=== PATIENT | female | born 1990 | race Caucasian/White ===

== ENCOUNTER 2023-05-05 19:14 | Inpatient (IN) | payer OTHER ==
[2023-05-05] MEDS ORDERED: METHYLERGONOVINE 0.2 MG/ML 1 ML AMP IM PRN (19:37)
[2023-05-05] MEDS ORDERED: TERBUTALINE 1 MG/ML VIAL SQ PRN (19:37)
[2023-05-05] MEDS ORDERED: TRANEXAMIC 1,000 MG/100ML-NACL 1,000 MG in EMPTY BAG 1 BAG IV PRN (19:37)
[2023-05-05] MEDS ORDERED: miSOPROStoL 200 MCG TAB PO PRN (19:37)
[2023-05-05] MEDS ORDERED: LIDOCAINE 0.5% (PF) 5 MG/ML (50 ML SDV) SQ PRN (19:37)
[2023-05-05] MEDS ORDERED: OXYTOCIN 10 UNIT/ML 1 ML VIAL IM PRN (19:37)
[2023-05-05] MEDS ORDERED: CARBOPROST TROMETHAMINE 250 MCG/ML 1 ML AMP IM PRN (19:37)
[2023-05-05] MEDS: LACTATED RINGERS 1,000 ML IV SCH ×2 (19:45→20:03)
[2023-05-05 20:06] LABS: Basophils % (A) 0 %; Eosinophils # (A) 0.2 k/uL (0-0.7); Eosinophils % (A) 2 %; HGB 12.3 gm/dL (11.4-16.0); Lymphocytes # (A) 3.4 k/uL (1.0-4.8); Lymphocytes % (A) 25 %; MCH 32.9 pg (25.0-35.0); MCHC 34.1 g/dL (31.0-37.0); MCV 96.3 fL (80.0-100.0); Mean Platelet Volume 8.9; Monocytes % (A) 7 %; Neutrophils # (A) 8.4 k/uL (1.3-7.7); Neutrophils % (A) 63 %; Platelet Count 236 k/uL (150-450); RBC 3.74 m/uL (3.80-5.40); RDW 13.4 % (11.5-15.5); WBC 13.4 k/uL (3.8-10.6)
[2023-05-05] MEDS ORDERED: SODIUM CHLORIDE 0.9% 250 ML BAG ONE (20:25)
[2023-05-05] MEDS ORDERED: ROPIVACAINE 5 MG/ML 30 ML VIAL ONE (20:25)
[2023-05-05] MEDS ORDERED: fentaNYL (PF) 50 MCG/ML 5 ML AMP ONE (20:25)
[2023-05-06] MEDS ORDERED: OXYTOCIN 10 UNIT/ML 1 ML VIAL IM PRN (01:39)
[2023-05-06] MEDS ORDERED: CITRIC ACID-SODIUM CITRATE 15 ML CUP PO ONE (01:39)
[2023-05-06] MEDS ORDERED: OXYTOCIN 30 UNITS/500 ML NS 30 UNIT in SALINE 1 500ML.BAG IV SCH (01:45)
[2023-05-06] MEDS ORDERED: fentaNYL (PF) 50 MCG/ML 2 ML AMP ONE (02:00)
[2023-05-06] MEDS ORDERED: ONDANSETRON 4 MG/2 ML VIAL ONE (02:00)
[2023-05-06] MEDS ORDERED: NALBUPHINE 10 MG/ML (10 ML MDV) ONE (02:00)
[2023-05-06] MEDS ORDERED: KETOROLAC 15 MG/ML 1 ML VIAL ONE (02:00)
[2023-05-06] MEDS ORDERED: MORPHINE SULFATE (PF) 0.3 MG/0.3 ML SYR ONE (02:00)
[2023-05-06] MEDS ORDERED: LIDOCAINE 2% (PF) 20 MG/ML 5 ML VIAL ONE (02:00)
--- NOTE | 2023-05-06 02:44 | P.HPOB ---
History of Present Illness H&P Date: 05/06/23 Chief Complaint: labor 32 year old presents at 39 weeks 4 days in active labor. Her cervix was 4/100/-1. She was jacob every few minutes and heart tones category I. Review of Systems All systems: negative Constitutional: Denies chills, Denies fever Eyes: denies blurred vision, denies pain Ears, nose, mouth and throat: Denies headache, Denies sore throat Cardiovascular: Denies chest pain, Denies shortness of breath Respiratory: Denies cough Gastrointestinal: Denies abdominal pain, Denies diarrhea, Denies nausea, Denies vomiting Genitourinary: Denies dysuria, Denies hematuria Musculoskeletal: Denies myalgias Integumentary: Denies pruritus, Denies rash Neurological: Denies numbness, Denies weakness Psychiatric: Denies anxiety, Denies depression Endocrine: Denies fatigue, Denies weight change Past Medical History Past Medical History: No Reported History History of Any Multi-Drug Resistant Organisms: None Reported Past Surgical History: No Surgical Hx Reported Past Anesthesia/Blood Transfusion Reactions: No Reported Reaction Past Psychological History: No Psychological Hx Reported Smoking Status: Never smoker Past Drug Use History: None Reported Medications and Allergies Home Medications Medication Instructions Recorded Confirmed Type Vit No.179/Iron/Folic 1 tab PO DAILY 05/05/23 05/05/23 History [ Tablet] Allergies Allergy/AdvReac Type Severity Reaction Status Date / Time No Known Allergies Allergy Verified 05/05/23 19:35 Exam Osteopathic Statement: *. No significant issues noted on an osteopathic structural exam other than those noted in the History and Physical/Consult. Vital Signs Temp Pulse Resp BP Pulse Ox 05/05/23 19:35 97.9 F 81 16 142/93 100 05/05/23 19:30 97.9 F 81 16 142/93 100 Intake and Output 05/05/23 05/05/23 05/06/23 14:59 22:59 06:59 Other: Weight 87.997 kg HEart: RRR Lungs: CTAB Abdomen: soft, nontender Extremeties: neg jo's Results Result Diagrams: 05/05/23 19:30 Abnormal Lab Results - Last 24 Hours (Table) 05/05/23 Range/Units 19:30 WBC 13.4 H (3.8-10.6) k/uL RBC 3.74 L (3.80-5.40) m/uL Neutrophils # 8.4 H (1.3-7.7) k/uL Assessment and Plan (1) Normal labor Current Visit: Yes Status: Acute Code(s): O80 - ENCOUNTER FOR FULL-TERM UNCOMPLICATED DELIVERY; Z37.9 - OUTCOME OF DELIVERY, UNSPECIFIED SNOMED Code( s): 17473908 (2) 39 weeks gestation of Current Visit: Yes Status: Acute Code(s): Z3A.39 - 39 WEEKS GESTATION OF SNOMED Code(s): 36495534 Plan: 1. admit to [facility] 2. expectant management 3. anticipate normal vaginal delivery
[2023-05-06] MEDS ORDERED: ONDANSETRON 4 MG/2 ML VIAL IVP PRN (02:48)
[2023-05-06] MEDS ORDERED: LANOLIN CREAM 5 GM TUBE TOPICAL PRN (02:48)
[2023-05-06] MEDS ORDERED: ZOLPIDEM 5 MG TAB PO PRN (02:48)
[2023-05-06] MEDS ORDERED: diphenhydrAMINE 50 MG CAP PO PRN (02:48)
[2023-05-06] MEDS ORDERED: METOCLOPRAMIDE 5 MG/ML 2 ML VIAL IVP PRN (02:48)
[2023-05-06] MEDS ORDERED: diphenhydrAMINE 25 MG CAP PO PRN (02:48)
[2023-05-06] MEDS ORDERED: NALOXONE 0.4 MG/ML 1 ML VIAL IV PRN (02:48)
[2023-05-06] MEDS ORDERED: diphenhydrAMINE 50 MG/ML 1 ML VIAL IVP PRN ×2 (02:48)
--- NOTE | 2023-05-06 02:48 | P.OP ---
Date of Procedure: 05/06/23 Preoperative Diagnosis: 1. at 39 weeks 4 days 2. labor 3. maternal fever 4. arrest of descent Postoperative Diagnosis: same Procedure(s) Performed: primary low transverse Anesthesia: epidural Surgeon: Lyudmila Romero Cardiac Cath Lab Manager #1: Emily Callahan Estimated Blood Loss (ml): 700 IV fluids (ml): 600 Urine output (ml): 150 Pathology: other (placenta) Condition: stable Disposition: floor Indications for Procedure: 30-year-old presented at 39 weeks and 4 days and labor. Her cervix was 4 centers dilated, her percent effaced, -1 station. She is jacob every few minutes. heart tones 135 with moderate variability and reactive, category 1. Spontaneous rupture membranes occurred at 1800. Meconium fluid was seen. The patient an epidural and she was uncomfortable and did progress to complete. She pushed for an hour with no descent of baby. There was At and patient was pushing directly but no descent was occurring. She then got a fever of 101 and heart tones were tachycardic with variables after contractions. Patient sent home was performed and discussion had with patient, and nursing staff at bedside. The concern for expected delivery was discussed the patient agreed to the plan of section. Operative Findings: Viable male, Apgars pending, weight 8 lbs. 11 oz. Normal uterus, tubes, ovaries. Description of Procedure: Patient was taken to the operating room where spinal anesthesia was found be adequate. She was prepped and draped in normal sterile fashion in dorsal supine position with a leftward tilt. Pfannenstiel skin incision was made the scalpel and carried through to the underlying layer of fascia with the scalpel. Fascia was incised in midline and carried bilaterally with the Mera scissors. The superior aspect of the fascial incision was grasped with [place] clamps elevated and the underlying rectus muscles dissected off with the Mera's. Attention was then turned to inferior aspect of same incision which in a similar fashion was grasped tented up and the underlying rectus muscles dissected off with the Mera's. The rectus muscles were the midline and the peritoneum was identified tented up and entered sharply with the scalpel. The incision was extended superiorly and inferiorly with good visualization of the bladder. The bladder blade was inserted and the vesicouterine peritoneum was incised the [place] then carried bilaterally and bladder flap created digitally. A low transverse incision was then made on the uterus with the scalpel. This was carried bilaterally and digital manner. Infant's head delivered atraumatically, nose and mouth bulb suctioned, cord clamped and cut, handed off to waiting nurses. Apgars pending, weight 8 lbs. 11 oz. Placenta delivered manually, intact with three-vessel cord. The uterus is exteriorized and cleared of all clots and debris. The uterine incision was closed with 0 Vicryl in a ru nning locked fashion. Second layer of the same sutures used in imbricating fashion to obtain excellent hemostasis. Bladder flap was then reapproximated using 2-0 Vicryl in a running fashion. Both ovaries and tubes appeared normal. The uterus was placed back into the abdomen. The peritoneum was reapproximated using 2-0 Vicryl in a running fashion. The muscles were reapproximated using 2- 0 Vicryl in interrupted fashion. The fascia was reapproximated using 0 Vicryl in a running fashion. The subcutaneous tissues closed with 3-0 Vicryl running fashion. The skin was closed ghulam. Patient tolerated the procedure well, sponge and instrument counts were correct times 2 and she was taken to the recovery room in stable condition.
[2023-05-06] MEDS: ACETAMINOPHEN TAB 500 MG TAB PO SCH ×4 (04:05→23:59)
[2023-05-06] MEDS: LACTATED RINGERS 1,000 ML IV SCH ×3 (04:06→21:02)
[2023-05-06] MEDS: IBUPROFEN 600 MG TAB PO SCH ×2 (07:45→17:12)
[2023-05-06] MEDS: KETOROLAC 15 MG/ML 1 ML VIAL IVP SCH ×3 (08:27→19:39)
[2023-05-06] MEDS: SENNOSIDES-DOCUSATE SODIUM 1 EACH TAB PO SCH ×2 (08:27→19:53)
[2023-05-07] MEDS: LACTATED RINGERS 1,000 ML IV SCH ×2 (01:12→20:59)
--- NOTE | 2023-05-07 05:20 | P.PN ---
Progress Note - Text Progress Note Date: 05/07/23 32 yo female s/p C/Section with LE and 3mg of epidural morphine POD#1 Overall doing well VAS 3/10 loacalized to the abdomen No LE motor/sensory deficits Tolerating PO well Ambulating well No complications noted.
[2023-05-07] MEDS: IBUPROFEN 600 MG TAB PO SCH ×5 (05:23→20:59)
[2023-05-07] MEDS: ACETAMINOPHEN TAB 500 MG TAB PO SCH ×3 (06:44→23:21)
[2023-05-07] MEDS: SENNOSIDES-DOCUSATE SODIUM 1 EACH TAB PO SCH ×2 (07:57→23:21)
[2023-05-07 09:05] LABS: Basophils % (A) 0 %; Eosinophils # (A) 0.2 k/uL (0-0.7); Eosinophils % (A) 1 %; HCT 26.8 % (34.0-46.0); Lymphocytes # (A) 1.7 k/uL (1.0-4.8); Lymphocytes % (A) 12 %; MCH 32.7 pg (25.0-35.0); MCHC 33.4 g/dL (31.0-37.0); Mean Platelet Volume 8.9; Monocytes # (A) 0.5 k/uL (0-1.0); Monocytes % (A) 3 %; Neutrophils # (A) 11.7 k/uL (1.3-7.7); Neutrophils % (A) 82 %; Platelet Count 170 k/uL (150-450); RBC 2.73 m/uL (3.80-5.40); RDW 13.7 % (11.5-15.5); WBC 14.3 k/uL (3.8-10.6)
[2023-05-07 09:20] LABS: HGB 8.9 gm/dL (11.4-16.0)
[2023-05-07] MEDS: KETOROLAC 15 MG/ML 1 ML VIAL IVP SCH ×2 (20:57→20:58)
[2023-05-08 01:31] LABS: Glucose,Whole Blood 93 mg/dL (70-110)
[2023-05-08] MEDS: IBUPROFEN 600 MG TAB PO SCH ×5 (02:02→23:20)
[2023-05-08] MEDS: KETOROLAC 15 MG/ML 1 ML VIAL IVP SCH ×4 (02:03→21:15)
[2023-05-08] MEDS: ACETAMINOPHEN TAB 500 MG TAB PO SCH ×4 (05:36→20:36)
[2023-05-08] MEDS: LACTATED RINGERS 1,000 ML IV SCH ×2 (05:36→19:38)
[2023-05-08] MEDS: SENNOSIDES-DOCUSATE SODIUM 1 EACH TAB PO SCH ×2 (07:55→21:16)
--- NOTE | 2023-05-08 08:46 | P.PNOBGPC ---
Subjective - Subjective Principal diagnosis: Status post primary postoperative day #2 Interval history: Patient is doing okay. She did have a fall last night where she was trying to put her jacket on and lost her balance and fell back and landed on her buttocks in her back and her head hit her jacket. She denies any loss of consciousness. She is having some soreness in her upper back muscles today. She is still able to move all of her extremities without difficulty. Pain is decreasing on her abdomen. She is passing flatus but no bowel movement. Bleeding has been minimal. She is still pumping her breast milk. Baby is still in level I nursery. Patient reports: Reports appetite normal, Reports voiding normally, Reports pain well controlled, Reports ambulating normally : other (In level I nursery) Objective - Vital Signs Latest vital signs: Vital Signs Temp Pulse Resp BP Pulse Ox 05/08/23 07:48 97.9 F 86 16 125/81 05/08/23 01:33 87 16 124/77 100 05/07/23 23:55 98.4 F 85 16 109/73 97 05/07/23 16:00 97.7 F 96 16 123/80 98 05/07/23 12:00 98.0 F 98 16 114/73 98 Intake and Output 05/07/23 05/08/23 05/08/23 22:59 06:59 14:59 Intake Total 500 Balance 500 Intake: IV 100 Oral 400 Other: # Voids 2 2 1 - Exam Extremities: Present: normal. Absent: tenderness, edema Abdomen: Present: normal appearance, soft (Positive bowel sounds 4). Absent: distention, tenderness Incision: Present: normal, dry, intact. Absent: erythematous Uterus: Present: normal, firm. Absent: tenderness - Labs Labs: Abnormal Lab Results - Last 24 Hours (Table) 05/07/23 Range/Units 08:31 WBC 14.3 H (3.8-10.6) k/uL RBC 2.73 L (3.80-5.40) m/uL Hgb 8.9 L D (11.4-16.0) gm/dL Hct 26.8 L (34.0-46.0) % Neutrophils # 11.7 H (1.3-7.7) k/uL Assessment and Plan Assessment: Status post primary low transverse section postoperative day #2 Plan: Continue with postoperative and care today. Diet as tolerated. Patient is advised to take care to make sure she is wearing nonslip socks or shoes.
[2023-05-09] MEDS: ACETAMINOPHEN TAB 500 MG TAB PO SCH ×4 (01:55→22:03)
[2023-05-09] MEDS: IBUPROFEN 600 MG TAB PO SCH ×3 (05:08→20:06)
[2023-05-09] MEDS: SENNOSIDES-DOCUSATE SODIUM 1 EACH TAB PO SCH ×2 (08:46→20:05)
[2023-05-09 08:55] VITALS: RESP 16
[2023-05-10] MEDS: ACETAMINOPHEN TAB 500 MG TAB PO SCH ×3 (00:47→12:17)
[2023-05-10] MEDS: IBUPROFEN 600 MG TAB PO SCH ×2 (03:14→10:45)
[2023-05-10] MEDS: SENNOSIDES-DOCUSATE SODIUM 1 EACH TAB PO SCH (08:40)
[2023-05-10 08:49] VITALS: BP 112/74; PULSE 87; TEMP 97.8
--- NOTE | 2023-05-10 09:12 | P.DS ---
Providers Date of admission: 05/05/23 19:26 Expected date of discharge: 05/10/23 Attending physician: Tianna Whitehead Primary care physician: Stated None Hospital Course: This is a 32-year-old female 1 para 0 at 39-4/7 weeks who presented with spontaneous rupture of membranes. She had a prolonged labor course and ended up with a primary section on 05/06/2023 for failure to descend and terminal fever. She delivered a viable male with a weight of 8 lbs. 11 oz. Her postoperative course has been essentially uncomplicated. She has been passing flatus and bowel movement now. Her pain is fairly well control led with ibuprofen and Tylenol. She is pumping her breast milk. Her baby is in level I nursery still. Vital signs are stable. Abdomen is soft with positive bowel sounds 4. Incision is clean dry and intact with ghulam in place. Extremities show negative Hom[place]. Impression is status post primary low transverse section postoperative day #4. Plan is to discharge home today. Routine postoperative and instructions are given. [place] will be removed and Steri-Strips placed prior to discharge. She is advised to follow up in the office in 1 week for a postoperative check and in 6 weeks for check. She will be given a prescription for ibuprofen and a breast pump. He is advised to call the office if she has any further questions or concerns prior to her appointment time. Procedures: Primary low transverse section for delivery of a viable male on 05/06/2023 Patient Condition at Discharge: Stable Plan - Discharge Summary New Discharge Prescriptions: New Ibuprofen [Motrin] 600 mg PO Q6H #60 tab Acetaminophen Tab [Tylenol] 1,000 mg PO Q6H tab Continue Vit No.179/Iron/Folic [ Tablet] 1 tab PO DAILY Discharge Medication List Vit No.179/Iron/Folic [ Tablet] 1 tab PO DAILY 05/05/23 [History] Acetaminophen Tab [Tylenol] 1,000 mg PO Q6H tab 05/10/23 [Rx] Ibuprofen [Motrin] 600 mg PO Q6H #60 tab 05/10/23 [Rx] Follow up Appointment(s)/Referral(s): Tianna Whitehead DO [Doctor of Osteopathic Medicine] - 1 Week (PO 05/15/2023 @1:30 PP 06/12/2023 @11:30) Activity/Diet/Wound Care/Special Instructions: Instructions 1. Do not begin any exercise program for 3 weeks. 2. Do not resume sexual relations for 3 weeks or longer if uncomfortable. 3. You may take tub baths or showers at any time. 4. You may use tampons if desired after 3 weeks. 5. Keep the area of episiotomy (stitches) clean and dry. 6. If you are not nursing, wear a good fitting, supportive bra during the day and limit fluid intake for at least 1 week to prevent breast engorgement. 7. Call the office, [phone], within the next week to make appointment for your 6 week checkup if it has not already been made. 8. Report any of the following occurrences to the doctor promptly: a. Heavy, excessive bleeding b. Chills, fever c. Burning or frequency of urination d. Pain or redness and breasts if nursing e. Increasing pain or swelling in episiotomy (stitches). In addition to the above instructions, the following additional should be followed: 1. No heavy lifting or straining (exercising) until after 6 week checkup. 2. Keep abdominal incision clean and dry: You may wear a dressing if more comfortable. 3. Make office appointment for 10 days after going home or as instructed by her doctor. Discharge Disposition: HOME SELF-CARE
--- NOTE | 2023-05-15 14:31 | CDI ---
Documentation Clarification Form Date: 05/15/2023 01:49:25 PM From: Bebe Kolb Admit Date: 05/05/2023 07:26:00 PM Patient Name: Karo Lutz Visit Number: [id number] Discharge Date: 05/10/2023 02:45:00 PM ATTENTION: The Clinical Documentation Specialists (CDI) and [facility] Coding Staff appreciate your assistance in clarifying documentation. Please respond to the clarification below the line at the bottom and electronically sign. The CDI & [facility] Coding staff will review the response and follow-up if needed. Please note: Queries are made part of the Legal Health Record. If you have any questions, please contact the author of this message via ITS. Dr. Tianna Whitehead Your patient has an abnormal lab value: 05/07 HGB 8.9 and HCT 26.8. Please clarify if there is an additional diagnosis and/or clinical significance related to this value. History/Risk Factors: patient is 32 year old who is 39 weeks . Presented in labor. Clinical indicators: patient presented in labor, was given an epidural, was fully dilated and pushed for 1 hour, with no descent of baby. She developed a maternal fever and heart tones were tachycardic with variables after contractions. Estimated blood loss was 700ml. Post op day 1: patient was doing well, tolerating PO well, ambulating well. Post op day 2: Patient is doing ok, did experience a fall last night while trying to put on her jacket. Lost her balance, fell backwards, and landed on her buttock, on her back, and her head hit her jacket. Bleeding has been minimal Labs: 05/05: HGB 12.3, HCT 36.0. 05/07: HGB 8.9, HCT 26.8 Vitals 05/07: T 98.4, P 85, RR 16, BP 109/73 Treatment: continue with postoperative and care, make sure patient is wearing nonslip socks and shoes. Provided with ibuprofen. Is there an additional diagnosis and/or clinical significance related to the above lab result/information? [ X ] Acute blood loss anemia [ ] No additional diagnosis/Not clinically significant [ ] Other, please specify [ ] Unable to determine MTDD
== END 2023-05-10 14:45 | disposition home or self-care (01) | DRG 540 ==
LOC: FBPOP 19:14 → 4FBP 19:26
PROVIDERS: ADMIT Obstetrics & Gynecology; ATTEND Obstetrics & Gynecology
PROC: 10D00Z1 Extraction of Products of Conception, Low, Open Approach (ICD-10-PCS; principal; 2023-05-06 02:27)
DX: O32.4XX0 Maternal care for high head at term, not applicable or unspecified (principal); O62.1 Secondary uterine inertia; D62 Acute posthemorrhagic anemia; O90.81 Anemia of the puerperium; O77.0 Labor and delivery complicated by meconium in amniotic fluid; W01.0XXA Fall on same level from slipping, tripping and stumbling without subsequent striking against object, initial encounter; Z37.0 Single live birth; Z3A.39 39 weeks gestation of pregnancy
CPT/HCPCS: 84112; 85025; 86850; 86900; 86901; 88307; 99213